=== PATIENT | female | born 1940 | race Caucasian/White ===

== ENCOUNTER → 2023-11-15 | Outpatient (REF) | PROVIDERS: ATTEND Physician Assistant | DX: I73.9 Peripheral vascular disease, unspecified (principal) ==

== ENCOUNTER → 2023-11-15 | Outpatient (REF) ==
[2023-11-15 09:59] LABS: HEMATOCRIT 38.6 % (36.0-47.0); HEMOGLOBIN 12.2 g/dl (12.0-15.5); MEAN CORPUSCULAR HEMOGLOBIN 30.3 pg (27.0-33.0); MEAN CORPUSCULAR HGB CONC 31.6 g/dl (32.0-36.5); MEAN CORPUSCULAR VOLUME 95.8 fl (80.0-96.0); PLATELET COUNT, AUTOMATED 377 10^3/uL (150-450); RED BLOOD COUNT 4.03 10^6/uL (4.00-5.40); WHITE BLOOD COUNT 4.1 10^3/uL (4.0-10.0)
[2023-11-15 10:23] LABS: BLOOD UREA NITROGEN < 5 MG/DL (9-23); CALCIUM LEVEL 8.8 MG/DL (8.3-10.6); CARBON DIOXIDE LEVEL 29 MMOL/L (20-31); CHLORIDE LEVEL 105 MMOL/L (98-107); GLOMERULAR FILTRATION RATE > 60.0 (>32); GLUCOSE, FASTING 84 MG/DL (74-106); POTASSIUM SERUM 3.6 MMOL/L (3.5-5.1); SODIUM LEVEL 138 MMOL/L (136-145)
== END ==
PROVIDERS: ATTEND Physician Assistant
DX: I73.9 Peripheral vascular disease, unspecified (principal)

== ENCOUNTER → 2023-11-20 | Outpatient (REF) ==
[2023-11-20 09:03] LABS: HEMATOCRIT 39.8 % (36.0-47.0); HEMOGLOBIN 12.8 g/dl (12.0-15.5); MEAN CORPUSCULAR HEMOGLOBIN 30.4 pg (27.0-33.0); MEAN CORPUSCULAR HGB CONC 32.2 g/dl (32.0-36.5); MEAN CORPUSCULAR VOLUME 94.5 fl (80.0-96.0); PLATELET COUNT, AUTOMATED 494 10^3/uL (150-450); RED BLOOD COUNT 4.21 10^6/uL (4.00-5.40); WHITE BLOOD COUNT 5.5 10^3/uL (4.0-10.0)
[2023-11-20 09:28] LABS: BLOOD UREA NITROGEN 5 MG/DL (9-23); CALCIUM LEVEL 9.2 MG/DL (8.3-10.6); CARBON DIOXIDE LEVEL 27 MMOL/L (20-31); CHLORIDE LEVEL 106 MMOL/L (98-107); CREATININE FOR GFR 0.52 MG/DL (0.55-1.30); GLOMERULAR FILTRATION RATE > 60.0 (>32); GLUCOSE, FASTING 84 MG/DL (74-106); POTASSIUM SERUM 3.4 MMOL/L (3.5-5.1); SODIUM LEVEL 141 MMOL/L (136-145)
== END ==
PROVIDERS: ATTEND Physician Assistant
DX: I73.9 Peripheral vascular disease, unspecified (principal)

== ENCOUNTER → 2023-12-18 | Outpatient (REF) ==
[2023-12-18 09:43] LABS: HEMATOCRIT 42.4 % (36.0-47.0); HEMOGLOBIN 13.7 g/dl (12.0-15.5); MEAN CORPUSCULAR HEMOGLOBIN 30.8 pg (27.0-33.0); MEAN CORPUSCULAR HGB CONC 32.3 g/dl (32.0-36.5); MEAN CORPUSCULAR VOLUME 95.3 fl (80.0-96.0); PLATELET COUNT, AUTOMATED 333 10^3/uL (150-450); RED BLOOD COUNT 4.45 10^6/uL (4.00-5.40); WHITE BLOOD COUNT 6.2 10^3/uL (4.0-10.0)
[2023-12-18 10:16] LABS: BLOOD UREA NITROGEN 16 MG/DL (9-23); CALCIUM LEVEL 10.8 MG/DL (8.3-10.6); CARBON DIOXIDE LEVEL 23 MMOL/L (20-31); CHLORIDE LEVEL 109 MMOL/L (98-107); CREATININE FOR GFR 0.57 MG/DL (0.55-1.30); GLOMERULAR FILTRATION RATE > 60.0 (>32); GLUCOSE, FASTING 99 MG/DL (74-106); POTASSIUM SERUM 4.2 MMOL/L (3.5-5.1); SODIUM LEVEL 142 MMOL/L (136-145)
== END ==
PROVIDERS: ATTEND Internal Medicine
DX: I73.9 Peripheral vascular disease, unspecified (principal)

== ENCOUNTER → 2024-01-06 | Outpatient (REF) ==
[2024-01-06 09:34] LABS: HEMATOCRIT 43.9 % (36.0-47.0); HEMOGLOBIN 13.8 g/dl (12.0-15.5); MEAN CORPUSCULAR HEMOGLOBIN 30.5 pg (27.0-33.0); MEAN CORPUSCULAR HGB CONC 31.4 g/dl (32.0-36.5); MEAN CORPUSCULAR VOLUME 97.1 fl (80.0-96.0); PLATELET COUNT, AUTOMATED 287 10^3/uL (150-450); RED BLOOD COUNT 4.52 10^6/uL (4.00-5.40); WHITE BLOOD COUNT 5.4 10^3/uL (4.0-10.0)
[2024-01-06 09:59] LABS: BLOOD UREA NITROGEN 17 MG/DL (9-23); CALCIUM LEVEL 10.1 MG/DL (8.3-10.6); CARBON DIOXIDE LEVEL 26 MMOL/L (20-31); CHLORIDE LEVEL 108 MMOL/L (98-107); CREATININE FOR GFR 0.64 MG/DL (0.55-1.30); GLOMERULAR FILTRATION RATE > 60.0 (>32); GLUCOSE, FASTING 112 MG/DL (74-106); POTASSIUM SERUM 4.5 MMOL/L (3.5-5.1); SODIUM LEVEL 141 MMOL/L (136-145)
== END ==
PROVIDERS: ATTEND Physician Assistant
DX: R63.4 Abnormal weight loss (principal)

== ENCOUNTER → 2024-01-13 | Outpatient (REF) ==
[2024-01-13 12:02] LABS: HEMATOCRIT 45.5 % (36.0-47.0); HEMOGLOBIN 14.1 g/dl (12.0-15.5); MEAN CORPUSCULAR HEMOGLOBIN 30.1 pg (27.0-33.0); MEAN CORPUSCULAR VOLUME 97.2 fl (80.0-96.0); PLATELET COUNT, AUTOMATED 338 10^3/uL (150-450); RED BLOOD COUNT 4.68 10^6/uL (4.00-5.40); WHITE BLOOD COUNT 6.3 10^3/uL (4.0-10.0)
[2024-01-13 12:49] LABS: BLOOD UREA NITROGEN 19 MG/DL (9-23); CALCIUM LEVEL 9.9 MG/DL (8.3-10.6); CARBON DIOXIDE LEVEL 25 MMOL/L (20-31); CHLORIDE LEVEL 108 MMOL/L (98-107); CREATININE FOR GFR 0.67 MG/DL (0.55-1.30); GLOMERULAR FILTRATION RATE > 60.0 (>32); GLUCOSE, FASTING 118 MG/DL (74-106); SODIUM LEVEL 142 MMOL/L (136-145)
== END ==
PROVIDERS: ATTEND Internal Medicine
DX: I73.9 Peripheral vascular disease, unspecified (principal)

== ENCOUNTER → 2024-02-03 | Outpatient (REF) | payer OTHER ==
[2024-02-03 10:14] LABS: THYROID STIMULATING HORMONE 2.643 uIU/ML (0.55-4.78)
[2024-02-03 10:29] LABS: FOLATE 9.75 NG/ML (>5.4)
== END ==
PROVIDERS: ATTEND Internal Medicine
DX: F03.90 Unspecified dementia, unspecified severity, without behavioral disturbance, psychotic disturbance, mood disturbance, and anxiety (principal)

== ENCOUNTER → 2024-02-26 | Outpatient (REF) | payer MEDICARE, OTHER ==
[2024-02-26 13:34] LABS: HEMATOCRIT 42.3 % (36.0-47.0); HEMOGLOBIN 13.6 g/dl (12.0-15.5); MEAN CORPUSCULAR HEMOGLOBIN 30.8 pg (27.0-33.0); MEAN CORPUSCULAR HGB CONC 32.2 g/dl (32.0-36.5); MEAN CORPUSCULAR VOLUME 95.7 fl (80.0-96.0); PLATELET COUNT, AUTOMATED 292 10^3/uL (150-450); RED BLOOD COUNT 4.42 10^6/uL (4.00-5.40); WHITE BLOOD COUNT 5.9 10^3/uL (4.0-10.0)
[2024-02-26 13:49] LABS: BLOOD UREA NITROGEN 18 MG/DL (9-23); CALCIUM LEVEL 9.4 MG/DL (8.3-10.6); CARBON DIOXIDE LEVEL 26 MMOL/L (20-31); CHLORIDE LEVEL 107 MMOL/L (98-107); CREATININE FOR GFR 0.69 MG/DL (0.55-1.30); GLOMERULAR FILTRATION RATE > 60.0 (>32); GLUCOSE, FASTING 100 MG/DL (74-106); POTASSIUM SERUM 4.6 MMOL/L (3.5-5.1); SODIUM LEVEL 142 MMOL/L (136-145)
== END ==
PROVIDERS: ATTEND Physician Assistant
DX: I10 Essential (primary) hypertension (principal)

== ENCOUNTER → 2024-08-19 | Outpatient (REF) | PROVIDERS: ATTEND Physician Assistant | DX: J84.10 Pulmonary fibrosis, unspecified (principal); R50.9 Fever, unspecified ==

== ENCOUNTER → 2024-08-24 | Outpatient (REF) ==
[2024-08-24 08:55] LABS: PLATELET COUNT, AUTOMATED 348 10^3/uL (150-450)
[2024-08-24 09:24] LABS: CALCIUM LEVEL 9.0 MG/DL (8.3-10.6); CARBON DIOXIDE LEVEL 23.0 MMOL/L (20-31); CHLORIDE LEVEL 104.0 MMOL/L (98-107); CREATININE FOR GFR 0.74 MG/DL (0.55-1.30); GLOMERULAR FILTRATION RATE 81.2 (>32); POTASSIUM SERUM 3.4 MMOL/L (3.5-5.1); SODIUM LEVEL 141.0 MMOL/L (136-145)
== END ==
PROVIDERS: ATTEND Physician Assistant
DX: N18.9 Chronic kidney disease, unspecified (principal)

== ENCOUNTER 2024-09-03 05:22 | Inpatient (IN) | payer MEDICARE, OTHER ==
[~2024-09-03] VITALS: Ht 152.4 cm; Wt 47.8 kg
[2024-09-03] MEDS: MORPHINE 2 MG/ML 1 ML VIAL IV ONE ×2 (05:40→09:37)
[2024-09-03] MEDS: ACETAMINOPHEN *IV* 1,000 MG in IV 1 EA IV ONE (05:40)
[2024-09-03] MEDS: ONDANSETRON 4MG 2ML VIAL IV ONE (05:40)
[2024-09-03 05:53] LABS: BASO # 0.1 10^3/uL (0.0-0.2); BASO % 0.5 % (0.0-1.0); EOS # 0.3 10^3/uL (0.0-0.5); EOS % 1.5 % (0.0-3.0); LYMPH # 2.1 10^3/uL (1.5-5.0); LYMPH % 12.6 % (24.0-44.0); MONO # 1.3 10^3/uL (0.0-0.8); MONO % 7.6 % (2.0-8.0); NEUTROPHILS # 12.6 10^3/uL (1.5-8.5); NEUTROPHILS % 76.2 % (36.0-66.0); PLATELET COUNT, AUTOMATED 345 10^3/uL (150-450)
[2024-09-03] MEDS: UNRESOLVED CLARIFICATION ENTRY XX STA (05:53)
[2024-09-03 06:19] LABS: CALCIUM LEVEL 9.7 MG/DL (8.3-10.6); CARBON DIOXIDE LEVEL 21.0 MMOL/L (20-31); CHLORIDE LEVEL 107.0 MMOL/L (98-107); CREATININE FOR GFR 0.77 MG/DL (0.55-1.30); GLOMERULAR FILTRATION RATE 77.5 (>32); POTASSIUM SERUM 4.2 MMOL/L (3.5-5.1); SODIUM LEVEL 141.0 MMOL/L (136-145)
[2024-09-03] MEDS: MORPHINE 2 MG/ML 1 ML VIAL IV PRN (08:46)
[2024-09-03 10:00] VITALS: BP 129/63; TEMP 97.8; O2SAT 93
[2024-09-03] MEDS ORDERED: ONDANSETRON 4MG ORAL DISINTEGRATING TAB PO PRN (10:55)
[2024-09-03] MEDS ORDERED: POLYVINYL ALCOHOL OPHTH SOLN 15ML (LIQUITEARS) OU PRN (10:55)
[2024-09-03] MEDS ORDERED: SALIVA SUBSTITUTE BTL MT PRN (10:55)
[2024-09-03] MEDS ORDERED: MORPHINE 10 MG/0.5 ML ORAL CONCENTRATE SOLUTION U/D SL PRN (10:55)
[2024-09-03] MEDS ORDERED: EZET10TA21 PO (11:47)
[2024-09-03] MEDS ORDERED: ACET-907 PO (11:47)
[2024-09-03] MEDS ORDERED: POTA-136 PO (11:47)
[2024-09-03] MEDS ORDERED: ROSU40TA81 PO (11:47)
[2024-09-03] MEDS ORDERED: SERT50TA29 PO (11:47)
[2024-09-03] MEDS ORDERED: CLOP75TA2 PO (11:47)
[2024-09-03] MEDS ORDERED: BISA10SU27 PR (11:47)
[2024-09-03] MEDS ORDERED: FENO145T7 PO (11:47)
[2024-09-03] MEDS ORDERED: ONDA-83 PO (11:47)
[2024-09-03] MEDS ORDERED: FLEEENE12 PR (11:47)
[2024-09-03] MEDS ORDERED: MEGE400O7 PO (11:47)
[2024-09-03] MEDS ORDERED: MILKSUS3 PO (11:47)
[2024-09-03] MEDS ORDERED: HOME MED LIST COMPLETE! XX SCH (11:50)
[2024-09-03] MEDS: LORazepam 1 MG TAB PO SCH (13:11)
[2024-09-03] MEDS: MORPHINE 10 MG/0.5 ML ORAL CONCENTRATE SOLUTION U/D SL SCH (13:13)
[2024-09-03] MEDS: LORazepam 1 MG TAB PO PRN (18:03)
[2024-09-03] MEDS: OLANZapine ORAL DISINTEGRATING TAB 5MG PO SCH (21:18)
[2024-09-04] MEDS: SCOPOLAMINE 1MG TRANSDERMAL PATCH TOP SCH (09:59)
[2024-09-04] MEDS: MORPHINE 10 MG/0.5 ML ORAL CONCENTRATE SOLUTION U/D SL SCH (13:36)
[2024-09-04] MEDS: HYOSCYAMINE SULFATE 0.125 MG SUBL TABLET SL PRN (16:50)
[2024-09-04] MEDS: ATROPINE SULFATE 1% OPHTH SOLN 2 ML BTL SL PRN (18:22)
[2024-09-05] MEDS: MORPHINE 10 MG/0.5 ML ORAL CONCENTRATE SOLUTION U/D SL PRN (03:23)
== END 2024-09-06 04:56 | disposition expired | DRG 965 ==
LOC: M ED 05:22 → M ED INP 10:03 → M MS5PR 11:08
PROVIDERS: ADMIT Student in an Organized Health Care Education/Training Program; ATTEND Student in an Organized Health Care Education/Training Program
DX: S72.002A Fracture of unspecified part of neck of left femur, initial encounter for closed fracture (principal); S32.512A Fracture of superior rim of left pubis, initial encounter for closed fracture; S32.592A Other specified fracture of left pubis, initial encounter for closed fracture; F03.90 Unspecified dementia, unspecified severity, without behavioral disturbance, psychotic disturbance, mood disturbance, and anxiety; I10 Essential (primary) hypertension; E78.5 Hyperlipidemia, unspecified; I25.10 Atherosclerotic heart disease of native coronary artery without angina pectoris; W19.XXXA Unspecified fall, initial encounter; Z51.5 Encounter for palliative care; R57.1 Hypovolemic shock; Z79.899 Other long term (current) drug therapy; F17.200 Nicotine dependence, unspecified, uncomplicated; R29.6 Repeated falls; G89.29 Other chronic pain; F41.9 Anxiety disorder, unspecified; F32.A Depression, unspecified; Y92.009 Unspecified place in unspecified non-institutional (private) residence as the place of occurrence of the external cause